=== PATIENT | female | born 1975 | race Caucasian/White ===

== ENCOUNTER 2016-08-25 16:11 | Outpatient (CLI) | payer OTHER ==
--- NOTE | 2016-08-26 08:00 | Diagnostic Imaging Report ---
Right foot (3 views) HISTORY: Pain There is mild to moderate valgus deformity about the first metatarsal phalangeal joint. Minimal spur formation noted about the base of the first proximal phalanx. No acute abnormalities. No fractures. IMPRESSION: 1. Mild to moderate valgus deformity with degenerative changes about the first metatarsal phalangeal joint.
--- NOTE | 2016-08-26 08:00 | Diagnostic Imaging Report ---
Right ankle (3 views) HISTORY: Pain No acute bony abnormalities. No fractures. Joint spaces appear normal. IMPRESSION: No acute abnormalities
== END 2016-08-25 16:31 | disposition home or self-care (01) ==
LOC: RAD 16:11 → EEVIPCON 16:11 → RAD 16:31
PROVIDERS: ATTEND General Practice
DX: M79.604 Pain in right leg (principal); M21.071 Valgus deformity, not elsewhere classified, right ankle; M19.071 Primary osteoarthritis, right ankle and foot
CPT/HCPCS: 73610-RT-TC; 73630-TC-RT

== ENCOUNTER 2016-10-19 08:29 | Outpatient (CLI) | payer OTHER ==
--- NOTE | 2016-10-19 10:19 | Diagnostic Imaging Report ---
Ultrasound abdomen HISTORY: Abdominal pain, provided history of cholecystectomy COMPARISON: None Technique: Sonography of the abdomen was performed in multiple planes. FINDINGS: Exam is limited due to bowel gas and body habitus. The liver demonstrates normal echogenicity and measures 18.3 cm. The liver margins are not well-defined limiting evaluation for focal lesions. The common bile duct measures 5 mm. Assessment of the pancreas is limited due to bowel gas. The right kidney measures 11.9 cm. The left kidney measures 12.0 cm. The renal margins are not well-defined, however, no evidence of focal lesions or hydronephrosis. The spleen measures 11.2 cm. IMPRESSION: Limited exam due to bowel gas and body habitus. Nonvisualization of the gallbladder compatible with provided history of cholecystectomy. No evidence of common bile duct dilatation. No evidence of hydronephrosis. Mild hepatomegaly.
== END 2016-10-19 09:04 | disposition home or self-care (01) ==
LOC: RAD 08:29
PROVIDERS: ATTEND General Practice
DX: R10.9 Unspecified abdominal pain (principal)
CPT/HCPCS: 76700-TC

== ENCOUNTER 2016-11-30 14:55 | Outpatient (CLI) | payer OTHER | END 2016-11-30 15:05 | disposition home or self-care (01) | LOC: LAB 14:55 | PROVIDERS: ATTEND General Practice | DX: N39.0 Urinary tract infection, site not specified (principal) | CPT/HCPCS: 87086-90 ==